=== PATIENT | female | born 1955 | race Two or more races ===

== ENCOUNTER 2019-12-09 09:18 | Outpatient (CLI) | payer BC | END 2019-12-09 09:20 | disposition home or self-care (01) | LOC: NUCLEAR 09:18 | PROVIDERS: ATTEND Internal Medicine | DX: R00.0 Tachycardia, unspecified (principal) ==

== ENCOUNTER 2019-12-09 15:15 | Outpatient (CLI) | payer BC | END 2019-12-09 15:17 | disposition home or self-care (01) | LOC: SONOGRAMA 15:15 | PROVIDERS: ATTEND Internal Medicine | DX: E03.8 Other specified hypothyroidism (principal); E04.1 Nontoxic single thyroid nodule ==

== ENCOUNTER → 2020-02-08 10:34 | Outpatient (CLI) | payer BC | END | disposition home or self-care (01) | LOC: LAB 10:34 | PROVIDERS: ATTEND Radiology Diagnostic Radiology | DX: N20.0 Calculus of kidney (principal) ==

== ENCOUNTER 2020-02-09 09:20 | Outpatient (CLI) | payer BC | END 2020-02-09 09:31 | disposition home or self-care (01) | LOC: RAD 09:20 → TOM 09:45 | PROVIDERS: ATTEND Specialist | DX: Q44.6 Cystic disease of liver (principal); K42.9 Umbilical hernia without obstruction or gangrene; R10.2 Pelvic and perineal pain; R10.11 Right upper quadrant pain ==

== ENCOUNTER 2020-04-12 14:23 | Outpatient (CLI) | payer BC | END 2020-04-12 14:30 | disposition home or self-care (01) | LOC: LAB → MAMO-SONO 14:23 | PROVIDERS: ATTEND Specialist | DX: Z12.31 Encounter for screening mammogram for malignant neoplasm of breast (principal); N60.11 Diffuse cystic mastopathy of right breast; N60.12 Diffuse cystic mastopathy of left breast ==

== ENCOUNTER 2020-05-02 08:16 | Outpatient (CLI) | payer BC | END 2020-05-02 08:17 | disposition home or self-care (01) | LOC: NUCLEAR 08:16 | DX: R07.9 Chest pain, unspecified (principal); I45.89 Other specified conduction disorders ==

== ENCOUNTER → 2020-05-02 10:01 | Outpatient (CLI) | payer BC | END | disposition home or self-care (01) | LOC: LAB 10:01 | DX: R00.8 Other abnormalities of heart beat (principal) ==

== ENCOUNTER 2020-06-06 13:10 | Outpatient (CLI) | payer BC | END 2020-06-06 13:17 | disposition home or self-care (01) | LOC: MAMO-SONO 13:10 | PROVIDERS: ATTEND Specialist | DX: M75.42 Impingement syndrome of left shoulder (principal); M25.512 Pain in left shoulder ==

== ENCOUNTER 2020-12-29 13:21 | Outpatient (CLI) | payer BC | END 2020-12-29 13:32 | disposition home or self-care (01) | LOC: SONOGRAMA 13:21 | PROVIDERS: ATTEND Internal Medicine | DX: E04.2 Nontoxic multinodular goiter (principal) ==

== ENCOUNTER 2021-04-16 13:22 | Outpatient (CLI) | payer BC | END 2021-04-16 13:25 | disposition home or self-care (01) | LOC: MAMO-SONO 13:22 | PROVIDERS: ATTEND Specialist | DX: N60.11 Diffuse cystic mastopathy of right breast (principal); N60.12 Diffuse cystic mastopathy of left breast ==

== ENCOUNTER 2021-07-31 13:36 | Outpatient (CLI) | payer BC | END 2021-07-31 13:39 | disposition home or self-care (01) | LOC: MRI 13:36 | PROVIDERS: ATTEND Psychiatry & Neurology Neurology | DX: G44.219 Episodic tension-type headache, not intractable (principal); G40.509 Epileptic seizures related to external causes, not intractable, without status epilepticus | CPT/HCPCS: 70551 ==

== ENCOUNTER 2021-08-01 12:43 | Outpatient (CLI) | payer BC | END 2021-08-01 12:48 | disposition home or self-care (01) | LOC: RAD 12:43 | PROVIDERS: ATTEND Internal Medicine | DX: M54.6 Pain in thoracic spine (principal); M54.2 Cervicalgia ==

== ENCOUNTER → 2022-05-21 13:24 | Outpatient (CLI) | payer BC | END | disposition home or self-care (01) | LOC: NUCLEAR 05-13 13:15 | PROVIDERS: ATTEND Specialist | DX: M81.0 Age-related osteoporosis without current pathological fracture (principal) ==

== ENCOUNTER 2022-09-03 13:50 | Emergency (ER) | payer OTHER, BC ==
[~2022-09-03] VITALS: Ht 162.6 cm; Wt 67.6 kg
[2022-09-03] MEDS ORDERED: ATORVASTATIN CA10 MG PO (15:07)
== END 2022-09-03 19:15 | disposition home or self-care (01) ==
LOC: ER 13:50
DX: S39.011A Strain of muscle, fascia and tendon of abdomen, initial encounter (principal)